=== PATIENT | female | born 1990 | race African-American/Black ===

== ENCOUNTER 2019-07-31 23:50 | Emergency (ER) | payer MEDICAID ==
[~2019-07-31] VITALS: Ht 162.6 cm; Wt 70.0 kg
[2019-08-01] MEDS ORDERED: KETOROLAC 30MG/ML VIAL IV STA (01:30)
[2019-08-01] MEDS ORDERED: SODIUM CHLORIDE 0.9% 1,000 ML IV ONE (01:30)
[2019-08-01 01:41] LABS: BASOPHILS % 0.9 % (0.0-2.0); EOSINOPHILS % 3.1 % (0.0-5.0); HEMOGLOBIN. 12.5 g/dL (12.0-16.0); LYMPHOCYTES % 24.4 % (20.0-50.0); MEAN CORPUSCULAR HEMOGLOBIN 30.2 pg (28.0-32.0); MEAN CORPUSCULAR VOLUME 89.5 fL (81.0-99.0); MEAN PLATELET VOLUME 10.6 fl (7.4-10.4); MONOCYTES % 7.1 % (2.0-8.0); NEUTROPHILS % 64.5 % (40.0-76.0); PLATELET 200 x1000/uL (130-400); RED BLOOD CELL COUNT 4.13 mill/uL (4.2-5.4); RED CELL DISTRIBUTION WIDTH 13.2 % (11.6-14.6)
[2019-08-01 01:43] LABS: CLARITY URINE HAZY (CLEAR); COLOR URINE YELLOW (YELLOW); KETONES URINE NEGATIVE (NEGATIVE); LEUKOCYTE ESTERASE URINE 1+ (NEGATIVE); NITRITE URINE NEGATIVE (NEGATIVE); OCCULT BLOOD URINE NEGATIVE (NEGATIVE); PH URINE 6.5 (4.5-8.0); PROTEIN URINE NEGATIVE (NEGATIVE); SPECIFIC GRAVITY URINE 1.022 (1.005-1.030); UROBILINOGEN URINE 0.2 E.U./dL (0.2-1.0)
[2019-08-01 01:45] LABS: INR 1.1; PROTHROMBIN TIME 11.5 sec (9.6-11.0)
[2019-08-01 01:59] LABS: CHLORIDE 106 mEq/L (98-107)
[2019-08-01 02:33] VITALS: BP 126/49
== END 2019-08-01 03:32 | disposition home or self-care (01) ==
LOC: ER 23:50
DX: R10.9 Unspecified abdominal pain (principal); K59.00 Constipation, unspecified; F12.10 Cannabis abuse, uncomplicated; Z90.49 Acquired absence of other specified parts of digestive tract
CPT/HCPCS: 36415; 74018; 76700; 80053; 81003; 81025; 83690; 85025; 85610; 96374; 99285; J1885; J7030